=== PATIENT | male | born 1990 | race Caucasian/White ===

== ENCOUNTER 2019-11-22 04:31 | Emergency (ER) | payer OTHER ==
--- NOTE | 2019-11-22 08:03 | RAD ---
XR Chest 1 View Portable History: Cough Comparison: None. Findings: Lungs are clear. No pneumothorax or effusion. Cardiac silhouette and mediastinal contours a re within normal limits. No acute osseous abnormality. Impression: No acute intrathoracic abnormality.
== END 2019-11-22 05:50 | disposition home or self-care (01) ==
LOC: ERS 04:31
DX: J10.1 Influenza due to other identified influenza virus with other respiratory manifestations (principal)
CPT/HCPCS: 71045; 87804